=== PATIENT | female | born 1985 | race Caucasian/White ===

== ENCOUNTER 2019-07-08 15:06 | Inpatient (IN) ==
[2019-07-08] MEDS ORDERED: BUTORPHANOL 1 MG/ML VIAL IV PRN (15:22)
[2019-07-08] MEDS ORDERED: MEPERIDINE 50 MG/1 ML VIAL IV PRN (15:22)
[2019-07-08] MEDS ORDERED: BUTORPHANOL 2 MG/ML VIAL IV PRN (15:22)
[2019-07-08] MEDS ORDERED: ONDANSETRON 4 MG/2 ML VIAL IV PRN (15:22)
[2019-07-08] MEDS ORDERED: LACTATED RINGERS 1,000 ML IV PRN (15:22)
[2019-07-08 15:47] LABS: Basophils % 0.2 % (0.0-0.8); Eosinophils # 0.2 10*3/uL (0.0-0.87); Hematocrit 38.4 VOL% (35.7-47.0); Hemoglobin 13.2 GM/DL (12.0-16.0); Immature Granulocytes % 0.6 %; Immature Granulocytes Absolute 0.06 #; Lymphocytes # 1.8 10*3/uL (1.4-4.0); Lymphocytes % 18.1 % (21.3-54.2); Mean Corpuscular HGB Conc 34.4 GM/DL (32-36); Mean Platelet Volume 11.7 FL (9.6-12.0); Monocytes % 8.3 % (1.7-12.7); Neutrophils % 70.8 % (38.7-73.9); Platelet Count 173 T/CUMM (130-400); Red Blood Count 3.88 MC/CUMM (3.8-5.5); Red Cell Distribution Width 12.9 % (9.3-17.3); White Blood Count 9.8 T/CUMM (4-12)
[2019-07-08 16:14] LABS: Albumin 2.7 G/DL (3.4-5.0); Bilirubin,Total 0.4 MG/DL (0.2-1.0); Calcium 8.6 MG/DL (8.5-10.1); Osmolality,Calculated 280.3 MOS/KG (273-304); Total Protein 6.3 G/DL (6.4-8.3); Uric Acid 6.4 MG/DL (2.6-6.0)
[2019-07-09] MEDS ORDERED: PROMETHAZINE 25 MG/1 ML VIAL IM ONE (08:47)
[2019-07-09] MEDS ORDERED: CITRIC ACID/SODIUM CITRATE 30 ML UDCUP PO ONE (08:47)
[2019-07-09] MEDS ORDERED: FAMOTIDINE 20 MG/2 ML VIAL IV ONE (08:47)
[2019-07-09] MEDS ORDERED: ONDANSETRON 4 MG/2 ML VIAL IV ONE (08:47)
[2019-07-09] MEDS ORDERED: LACTATED RINGERS 1,000 ML IV ONE (08:47)
[2019-07-09] MEDS ORDERED: ePHEDrine 50 MG/ML AMP IV PRN (08:47)
[2019-07-09] MEDS ORDERED: hydrOXYzine HCL 25 MG/1 ML VIAL IM PRN (08:47)
[2019-07-09] MEDS ORDERED: diphenhydrAMINE 50 MG/1 ML VIAL IV PRN ×2 (08:47)
[2019-07-09] MEDS ORDERED: NALOXONE 0.4 MG/ML VIAL IV PRN (08:47)
[2019-07-09] MEDS ORDERED: LACTATED RINGERS 1,000 ML IV SCH (09:00)
[2019-07-09] MEDS ORDERED: fentaNYL 2 MCG/ROPIV 0.2% EPID 100 ML EPIDURAL SCH (09:00)
[2019-07-09] MEDS ORDERED: OXYTOCIN/LR 20 UNIT/1,000 ML BAG IV SCH (10:00)
[2019-07-09 12:33] LABS: Apearance,Urine CLEAR (Clear); Bilirubin,Urine Negative (Negative); Blood, Urine Negative (Negative); Glucose,Urine (UA) Negative (Negative); Ketones,Urine Negative (Negative); Mucus,Urine Few /LPF (Occasional); Nitrite,Urine Negative (Negative); Protein,Urine Negative; Squamous Epithelial Cell,Urine Occasional /HPF (0-10); Urine Color Yellow (Yellow); Urine Specific Gravity 1.017 (1.001-1.035); Urine Urobilinogen < 2.0 EU/DL (0.2-1.0)
[2019-07-09] MEDS ORDERED: LIDOCAINE 1% 50 ML VIAL ONE (13:49)
[2019-07-09] MEDS ORDERED: METHYLERGONOVINE 0.2 MG/1 ML AMP ONE (13:50)
[2019-07-09] MEDS ORDERED: CARBOPROST TROMETHAMINE 250 MCG/ML AMP IM ONE (13:50)
[2019-07-09] MEDS ORDERED: miSOPROStoL 200 MCG TABLET ONE (13:50)
[2019-07-09 17:19] LABS: Cord Arterial Blood HCO3 17.8 MMOL/L
[2019-07-09 17:22] LABS: Cord Venous Blood HCO3 20.2 MMOL/L; Cord Venous Blood PCO2 38.1 MMHG; Cord Venous Blood PO2 23.4
[2019-07-09] MEDS ORDERED: DIPH/TET/ACEL PERT BOOSTER VACCINE 0.5 ML VIAL IM ONE (20:46)
[2019-07-09] MEDS ORDERED: LANOLIN 50% CREAM 0.3 OZ TUBE TOP PRN (20:46)
[2019-07-09] MEDS ORDERED: ACETAMINOPHEN 325 MG TABLET PO PRN (20:46)
[2019-07-09] MEDS ORDERED: OXYTOCIN/LR 20 UNIT/1,000 ML BAG IV ONE (20:46)
[2019-07-09] MEDS ORDERED: oxyCODONE/ACETAMINOPHEN 5-325 MG TABLET PO PRN ×2 (20:46)
[2019-07-09] MEDS ORDERED: WITCH HAZEL PADS 100/JAR TOP PRN (20:46)
[2019-07-09] MEDS ORDERED: RHO(D) IMMUNE GLOBULIN 300 MCG SYRINGE IM ONE (20:46)
[2019-07-09] MEDS ORDERED: MEASLES/MUMPS/RUBELLA VACCINE 0.5 ML VIAL SUBCUT ONE (20:46)
[2019-07-09] MEDS ORDERED: HYDROCORTISONE 2.5% RECTAL CREAM 30 GM TUBE TOP PRN (20:46)
[2019-07-09] MEDS ORDERED: BENZOCAINE 20%/MENTHOL 0.5% SPRAY 56 GM CAN TOP PRN (20:46)
[2019-07-09] MEDS ORDERED: BISACODYL 10 MG SUPP RECTAL PRN (20:46)
[2019-07-09] MEDS: IBUPROFEN 800 MG TABLET PO PRN (20:53)
[2019-07-10] MEDS: DOCUSATE SODIUM 100 MG CAPSULE PO SCH ×3 (01:45→22:00)
[2019-07-10 05:53] LABS: Basophils % 0.2 % (0.0-0.8); Eosinophils # 0.2 10*3/uL (0.0-0.87); Eosinophils % 1.3 % (0.00-10.9); Hematocrit 32.2 VOL% (35.7-47.0); Immature Granulocytes % 0.6 %; Immature Granulocytes Absolute 0.07 #; Lymphocytes # 2.3 10*3/uL (1.4-4.0); Lymphocytes % 18.7 % (21.3-54.2); Mean Corpuscular HGB Conc 34.8 GM/DL (32-36); Mean Corpuscular Volume 98.5 FL (87-102); Mean Platelet Volume 12.1 FL (9.6-12.0); Monocytes % 8.4 % (1.7-12.7); Neutrophils % 70.8 % (38.7-73.9); Red Blood Count 3.27 MC/CUMM (3.8-5.5); Red Cell Distribution Width 12.6 % (9.3-17.3); White Blood Count 12.3 T/CUMM (4-12)
[2019-07-10 05:55] LABS: Hemoglobin 11.2 GM/DL (12.0-16.0); Platelet Count 126 T/CUMM (130-400)
[2019-07-10] MEDS: IBUPROFEN 800 MG TABLET PO PRN (21:45)
[2019-07-11 07:27] VITALS: BP 120/87
[2019-07-11] MEDS: DOCUSATE SODIUM 100 MG CAPSULE PO SCH (10:36)
[2019-07-11] MEDS ORDERED: DIPH/TET/ACEL PERT BOOSTER VACCINE 0.5 ML VIAL IM ONE (10:57)
== END 2019-07-11 12:50 | disposition home or self-care (01) | DRG 807 ==
LOC: N.LD 15:06 → N.OB 07-09 21:35
PROVIDERS: ADMIT Obstetrics & Gynecology; ATTEND Obstetrics & Gynecology

== ENCOUNTER 2021-07-07 04:54 | Inpatient (IN) ==
[2021-07-07] MEDS ORDERED: ONDANSETRON 4 MG/2 ML VIAL IV PRN (05:04)
[2021-07-07] MEDS ORDERED: MEPERIDINE 50 MG/1 ML VIAL IV PRN (05:04)
[2021-07-07] MEDS ORDERED: BUTORPHANOL 2 MG/ML VIAL IV PRN (05:04)
[2021-07-07] MEDS: LACTATED RINGERS 1,000 ML IV SCH ×3 (05:31→10:24)
[2021-07-07] MEDS ORDERED: FAMOTIDINE 20 MG/2 ML VIAL IV ONE ×2 (05:42→07:41)
[2021-07-07] MEDS: OXYTOCIN/LR 20 UNIT/1,000 ML BAG IV SCH ×2 (05:55→18:25)
[2021-07-07 06:00] LABS: Basophils % 0.4 % (0.0-0.8); Eosinophils # 0.3 10*3/uL (0.0-0.87); Eosinophils % 2.9 % (0.00-10.9); Hematocrit 39.3 VOL% (35.7-47.0); Hemoglobin 13.1 GM/DL (12.0-16.0); Immature Granulocytes % 1.1 %; Lymphocytes # 2.3 10*3/uL (1.4-4.0); Lymphocytes % 26.2 % (21.3-54.2); Mean Corpuscular HGB Conc 33.3 GM/DL (32-36); Mean Corpuscular Volume 98.5 FL (87-102); Mean Platelet Volume 12.1 FL (9.6-12.0); Monocytes % 8.7 % (1.7-12.7); Neutrophils % 60.7 % (38.7-73.9); Platelet Count 185 T/CUMM (130-400); Red Blood Count 3.99 MC/CUMM (3.8-5.5); Red Cell Distribution Width 13.2 % (9.3-17.3); White Blood Count 8.9 T/CUMM (4-12)
[2021-07-07] MEDS: CLINDAMYCIN INJ 900 MG/50 ML PREMIX IV SCH ×2 (06:01→13:56)
[2021-07-07 06:07] LABS: INR 0.9; PT Patient Result 9.8 SECS (10.5-12.0); Partial Thromboplastin Time 26.6 SECS (23.8-32.1)
[2021-07-07 06:15] LABS: Alanine Aminotransferase 23 U/L (13-56); Albumin 2.8 G/DL (3.4-5.0); Alkaline Phosphatase 161 U/L (45-117); Aspartate Amino Transferase 30 U/L (0-37); Bilirubin,Total < 0.39 MG/DL (0.20-1.00); Blood Urea Nitrogen 7 MG/DL (7-18); Calcium 9.7 MG/DL (8.5-10.1); Carbon Dioxide 20 MMOL/L (21-32); Estimated Glom Filtration Rate 102 ML/MIN; Glucose 93 MG/DL (74-106); Osmolality,Calculated 274.5 MOS/KG (273-304); Potassium 3.8 MMOL/L (3.5-5.1); Sodium 139 MMOL/L (136-145); Total Protein 6.1 G/DL (6.4-8.2); Uric Acid 6.7 MG/DL (2.6-6.0)
[2021-07-07] MEDS ORDERED: NIFEdipine 10 MG CAPSULE PO ONE (07:20)
[2021-07-07] MEDS ORDERED: ONDANSETRON 4 MG/2 ML VIAL IV ONE (07:41)
[2021-07-07] MEDS ORDERED: CITRIC ACID/SODIUM CITRATE 30 ML UDCUP PO ONE (07:41)
[2021-07-07] MEDS ORDERED: PROMETHAZINE 25 MG/1 ML VIAL IM ONE (07:41)
[2021-07-07] MEDS ORDERED: hydrOXYzine HCL 25 MG/1 ML VIAL IM PRN (07:41)
[2021-07-07] MEDS ORDERED: NALOXONE 0.4 MG/ML VIAL IV PRN (07:41)
[2021-07-07] MEDS ORDERED: diphenhydrAMINE 50 MG/1 ML VIAL IV PRN ×2 (07:41)
[2021-07-07] MEDS ORDERED: ePHEDrine 50 MG/ML VIAL IV PRN (07:41)
[2021-07-07] MEDS ORDERED: fentaNYL 2 MCG/ROPIV 0.2% EPID 100 ML EPIDURAL SCH (08:00)
[2021-07-07] MEDS ORDERED: PHENYLEPHRINE 1 MG/10 ML SYRINGE IV ONE (08:40)
[2021-07-07] MEDS ORDERED: ALBUMIN 5% 12.5 GM/250 ML VIAL IV ONE (09:02)
[2021-07-07] MEDS: ACETAMINOPHEN 500 MG TABLET PO PRN ×2 (14:27→17:19)
[2021-07-07] MEDS ORDERED: TRANEXAMIC ACID 1,000 MG/10 ML VIAL ONE (15:19)
[2021-07-07] MEDS ORDERED: miSOPROStoL 200 MCG TABLET ONE (15:19)
[2021-07-07] MEDS ORDERED: CARBOPROST TROMETHAMINE 250 MCG/ML AMP IM ONE (15:20)
[2021-07-07] MEDS ORDERED: METHYLERGONOVINE 0.2 MG/1 ML AMP ONE (15:20)
[2021-07-07 16:25] LABS: Cord Arterial Blood HCO3 17.8 MMOL/L
[2021-07-07 16:31] LABS: Cord Venous Blood HCO3 20.8 MMOL/L; Cord Venous Blood PCO2 38.8 MMHG; Cord Venous Blood PO2 31.4
[2021-07-07] MEDS ORDERED: ACETAMINOPHEN 325 MG TABLET PO PRN (20:00)
[2021-07-07] MEDS ORDERED: WITCH HAZEL PADS 100/JAR TOP PRN (20:00)
[2021-07-07] MEDS ORDERED: HYDROCORTISONE 2.5% RECTAL CREAM 30 GM TUBE TOP PRN (20:00)
[2021-07-07] MEDS ORDERED: MEASLES/MUMPS/RUBELLA VACCINE 0.5 ML VIAL SUBCUT ONE (20:00)
[2021-07-07] MEDS ORDERED: OXYTOCIN/LR 20 UNIT/1,000 ML BAG IV ONE (20:00)
[2021-07-07] MEDS ORDERED: LANOLIN 50% CREAM 0.3 OZ TUBE TOP PRN (20:00)
[2021-07-07] MEDS ORDERED: RHO(D) IMMUNE GLOBULIN 300 MCG SYRINGE IM ONE (20:00)
[2021-07-07] MEDS ORDERED: DIPH/TET/ACEL PERT BOOSTER VACCINE 0.5 ML VIAL IM ONE (20:00)
[2021-07-07] MEDS ORDERED: BENZOCAINE 20%/MENTHOL 0.5% SPRAY 56 GM CAN TOP PRN (20:00)
[2021-07-07] MEDS ORDERED: BISACODYL 10 MG SUPP RECTAL PRN (20:00)
[2021-07-07] MEDS ORDERED: oxyCODONE/ACETAMINOPHEN 5-325 MG TABLET PO PRN ×2 (20:00)
[2021-07-07] MEDS: IBUPROFEN 800 MG TABLET PO PRN (21:10)
[2021-07-08] MEDS: DOCUSATE SODIUM 100 MG CAPSULE PO SCH ×3 (00:01→21:25)
[2021-07-08 05:47] LABS: Basophils % 0.3 % (0.0-0.8); Eosinophils # 0.2 10*3/uL (0.0-0.87); Eosinophils % 1.6 % (0.00-10.9); Hematocrit 34.7 VOL% (35.7-47.0); Hemoglobin 11.8 GM/DL (12.0-16.0); Immature Granulocytes % 0.9 %; Immature Granulocytes Absolute 0.12 #; Lymphocytes # 2.6 10*3/uL (1.4-4.0); Lymphocytes % 19.3 % (21.3-54.2); Mean Corpuscular Volume 98.6 FL (87-102); Mean Platelet Volume 11.7 FL (9.6-12.0); Monocytes % 8.3 % (1.7-12.7); Neutrophils % 69.6 % (38.7-73.9); Platelet Count 167 T/CUMM (130-400); Red Blood Count 3.52 MC/CUMM (3.8-5.5); Red Cell Distribution Width 13.1 % (9.3-17.3); White Blood Count 13.3 T/CUMM (4-12)
[2021-07-08 06:25] LABS: Eosinophils 1 % (0-10); Hypochromasia 1+; Lymphocytes 16 % (20-55); Microcytosis 1+; Platelet Estimate Adequate; Segmented Neutrophils 78 % (50-85); Total Cells Counted 100
[2021-07-08] MEDS: IBUPROFEN 800 MG TABLET PO PRN ×2 (08:09→15:55)
[2021-07-09] MEDS: IBUPROFEN 800 MG TABLET PO PRN (00:03)
[2021-07-09] MEDS ORDERED: ALUMINUM/MAGNES/SIMETH MAX STR 30 ML UDCUP PO PRN (02:10)
[2021-07-09] MEDS ORDERED: FUROSEMIDE 20 MG TABLET PO ONE (08:18)
[2021-07-09] MEDS: DOCUSATE SODIUM 100 MG CAPSULE PO SCH (08:32)
[2021-07-09 09:28] VITALS: BP 131/81
== END 2021-07-09 12:30 | disposition home or self-care (01) | DRG 807 ==
LOC: N.LD 04:54 → N.OB 21:45
PROVIDERS: ADMIT Obstetrics & Gynecology; ATTEND Obstetrics & Gynecology